=== PATIENT | female | born 1970 | race African-American/Black ===

== ENCOUNTER 2019-09-21 | Outpatient (CLI) | payer OTHER | END 2019-09-21 08:11 | disposition home or self-care (01) | DX: K70.30 Alcoholic cirrhosis of liver without ascites (principal); K21.9 Gastro-esophageal reflux disease without esophagitis; K72.90 Hepatic failure, unspecified without coma ==

== ENCOUNTER 2020-08-16 10:00 | Outpatient (CLI) | payer OTHER | END 2020-08-16 10:01 | disposition home or self-care (01) | LOC: BICULT 10:00 | PROVIDERS: ATTEND Physician Assistant Medical | DX: K70.30 Alcoholic cirrhosis of liver without ascites (principal); K72.90 Hepatic failure, unspecified without coma; R63.4 Abnormal weight loss; R07.81 Pleurodynia; R18.8 Other ascites; R16.1 Splenomegaly, not elsewhere classified | CPT/HCPCS: 76705 ==

== ENCOUNTER 2020-12-02 04:10 | Inpatient (IN) | payer OTHER ==
[2020-12-02] MEDS ORDERED: Potassium Chloride 40 MEQ in Premix Bag 1 BAG IVPB SCH (06:00)
[2020-12-02] MEDS ORDERED: Dextrose 50% Abboject 50 ML SYRINGE SLOW IVP PRN (06:17)
[2020-12-02] MEDS ORDERED: Ondansetron PF 4 MG/2 ML Vial IVP PRN (06:17)
[2020-12-02] MEDS ORDERED: hydrALAZINE 20 MG/ML VIAL SLOW IVP PRN (06:17)
[2020-12-02] MEDS ORDERED: Dextrose 5% in Water 1,000 ML IV PRN (06:17)
[2020-12-02] MEDS ORDERED: Potassium Chloride 40 MEQ in Sodium Chloride 0.9% 250 ML 250 ML IVPB SCH (06:30)
[2020-12-02] MEDS: Sodium Chloride 0.9% 1,000 ML IV SCH ×3 (06:55→21:08)
[2020-12-02] MEDS: Oxazepam 10 MG CAP PO SCH ×3 (07:00→23:47)
[2020-12-02 07:26] LABS: Hemoglobin 8.9 g/dL (12.0-16.0); Mean Corpuscular HGB CONC 31.6 g/dL (32.0-36.0); Mean Corpuscular Volume 91.7 fL (78.0-98.0); Mean Platelet Volume 8.8 fL (7.4-10.4); Platelet Count 64 thou/uL (130-400); RBC Distribution Width 15.3 % (11.5-14.5); Red Blood Cell (RBC) Count 3.07 mill/uL (4.20-5.40); White Blood Cell (WBC) Count 2.8 thou/uL (4.8-10.8)
[2020-12-02 07:34] LABS: Lactic Acid 3.9 mmol/L (0.5-2.2)
[2020-12-02 07:39] LABS: ALT (SGPT) 30 U/L (8-55); AST (SGOT) 154 U/L (5-34); Albumin 2.7 g/dL (3.5-5.0); Alkaline Phosphatase 312 U/L (40-110); Anion Gap 15 mmol/L (10-20); BUN (Urea Nitrogen) 7 mg/dL (9.8-20.1); Calc. Creatinine Clearance 81 mL/min (70-130); Calcium 7.6 mg/dL (7.8-10.44); Carbon Dioxide 23 mmol/L (22-29); Chloride 103 mmol/L (98-107); Globulin 5.2 g/dL (2.4-3.5); Glucose 96 mg/dL (70-105); Magnesium 1.3 mg/dL (1.6-2.6); Phosphorus 3.4 mg/dL (2.3-4.7); Potassium 3.5 mmol/L (3.5-5.1); Protein, Total 7.9 g/dL (6.0-8.3); Sodium 137 mmol/L (136-145)
[2020-12-02 07:47] LABS: INR-International Normal Ratio 1.5; Prothrombin Time 18.1 sec (12.0-14.7)
[2020-12-02 07:48] LABS: PTT 34.2 sec (22.9-36.1)
[2020-12-02] MEDS ORDERED: Magnesium Sulfate 4 GM in Sodium Chloride 0.9% 250 ML 250 ML IV SCH (08:00)
[2020-12-02] MEDS ORDERED: Ferrous Sulfate 325 MG TAB PO SCH (08:00)
[2020-12-02 08:06] LABS: #Lymphocytes 0.5 thou/uL (1.20-3.40); #Monocytes 0.2 thou/uL (0.11-0.59); %Basophils 1.2 % (0.0-1.0); %Eosinophils 1.1 % (0.0-10.0); %Lymphocytes 17.3 % (21.0-51.0); %Monocytes 8.5 % (0.0-10.0); %Neutrophils 71.9 % (42.0-75.0); Band 2 % (5-11); Hypochromia SLIGHT = 6-15 cells (100X) (0-5/hpf); Lymphocytes 14 % (21-51); MDiff Complete? YES; Monocytes 4 % (0-10); Neutrophil 78 % (42-75); Platelet Morphology Comment Appears Decreased; Polychromasia SLIGHT = 2-3 cells (100X) (0-2/hpf); Target Cells SLIGHT = 2-5 cells (100X) (0-1/hpf)
[2020-12-02] MEDS: Ascorbic Acid 500 mg Chewable Tablet PO SCH ×2 (09:00→21:54)
[2020-12-02] MEDS: Ferrous Sulfate 325 MG TAB PO SCH ×2 (09:00→21:55)
[2020-12-02] MEDS ORDERED: levETIRAcetam in NS 500 MG in Premix Bag 1 BAG IVPB SCH (09:00)
[2020-12-02] MEDS: Folic Acid 1 MG TAB PO SCH (09:00)
[2020-12-02] MEDS ORDERED: levETIRAcetam 500 MG TAB PO SCH (09:00)
[2020-12-02] MEDS: Pantoprazole 40 MG VIAL IVP SCH (12:17)
[2020-12-02 14:56] LABS: Bacteria/HPF None Seen HPF (None Seen); Bilirubin Negative (Negative); Blood, Urine Negative (Negative); Clarity Clear (Clear); Glucose, Urine (Dipstick) Normal (Negative); Ketone, Urine Negative (Negative); Leukocyte Negative Leu/uL (Negative); Nitrite Negative (Negative); Protein, Urine (Dipstick) Negative (Neg-Trace); RBC/HPF 0-3 HPF (0-3); Specific Gravity, Urine 1.027 (1.002-1.036); Squamous Epithelial None Seen HPF (0-3); WBC/HPF 0-3 HPF (0-3)
[2020-12-02 14:58] LABS: Urine Culture Reflex No No
[2020-12-02] MEDS ORDERED: Promethazine HCl 12.5 MG in Sodium Chloride 0.9% 50 ML IVPB PRN (16:11)
[2020-12-02] MEDS ORDERED: Ibuprofen 600 MG TAB PO PRN (16:36)
[2020-12-02] MEDS ORDERED: Fentanyl 250 MCG/5 ML VIAL ONE (16:51)
[2020-12-02] MEDS ORDERED: Lidocaine 0.5%/Epinephrine 1:200,000 50 ml Vial ONE (16:54)
[2020-12-02] MEDS ORDERED: Thrombin 5000 UNITS/5 ML VIAL ONE (16:54)
[2020-12-02] MEDS ORDERED: Scopolamine 1.5 mg/72 hour Patch TD SCH (17:00)
[2020-12-02] MEDS ORDERED: Folic Acid 0.4 MG in Syringe 0 ML SC SCH (18:00)
[2020-12-02] MEDS ORDERED: Dexamethasone 20 MG/5 ML VIAL ONE (18:01)
[2020-12-02] MEDS ORDERED: Lidocaine 1% PF 5 ML VIAL ONE (18:01)
[2020-12-02] MEDS ORDERED: PHENYLEPHRINE-NS 100 MCG/ML 10 ML SYRINGE ONE (18:01)
[2020-12-02] MEDS ORDERED: Esmolol 100 MG/10 ML VIAL ONE (18:01)
[2020-12-02] MEDS ORDERED: Rocuronium Bromide 10 MG/ML (10ML VIAL) ONE (18:01)
[2020-12-02] MEDS ORDERED: PROPOFOL 200 MG/20 ML VIAL ONE (18:01)
[2020-12-02 20:27] LABS: Actual Bicarbonate (HCO3a) 22.7 mEq/L (22-28); Base Excess (BEa) 0.3 mEq/L (-2.0 to +3.0); CO2 Tension 28.8 mmHg (35.0-45.0); Calcium, Ionized (arterial) 0.95 mmol/L (1.12-1.30); Carboxyhemoglobin (COHb) 0.6 gm% (0.0-3.0); O2 Tension (PaO2), arterial 108.9 mmHg (80.0-100.0); Potassium - ABG Lab 3.43 mmol/L (3.70-5.30); pH, Arterial 7.52 (7.35-7.45)
[2020-12-02 20:30] LABS: Puncture Site RRA
[2020-12-02] MEDS ORDERED: Calcium Chloride 1 GM/10 ML Abboject SYRINGE IVP SCH ×2 (20:48→21:00)
[2020-12-02] MEDS: levETIRAcetam in NS 500 MG in Premix Bag 1 BAG IVPB SCH (21:09)
[2020-12-02] MEDS ORDERED: Morphine 2 MG/ML VIAL SLOW IVP PRN (21:15)
[2020-12-02] MEDS ORDERED: fentaNYL Citrate/PF 2,000 MCG in Sodium Chloride 0.9% 60 ML IV PRN (21:16)
[2020-12-02] MEDS ORDERED: Fentanyl CADD 100 ML IV SCH (21:45)
[2020-12-02 22:03] LABS: Actual Bicarbonate (HCO3a) 24.8 mEq/L (22-28); Base Excess (BEa) 1.3 mEq/L (-2.0 to +3.0); Carboxyhemoglobin (COHb) 0.4 gm% (0.0-3.0); Hemoglobin (Hb) 9.7 g/dL (12.0-16.0); O2 Tension (PaO2), arterial 156.5 mmHg (80.0-100.0); Potassium - ABG Lab 3.57 mmol/L (3.70-5.30); pH, Arterial 7.47 (7.35-7.45)
[2020-12-02 22:11] LABS: Puncture Site RRA
[2020-12-02] MEDS ORDERED: Fentanyl CADD 100 ML ONE (23:34)
[2020-12-02] MEDS: CEFAZOLIN 2 GM in Premix Bag 1 BAG IVPB SCH (23:47)
[2020-12-03] MEDS ORDERED: Sodium Chloride 0.9% 1,000 ML IV SCH ×5 (00:44→15:30)
[2020-12-03 01:36] LABS: Lactic Acid 2.1 mmol/L (0.5-2.2)
[2020-12-03 01:45] LABS: Troponin I Less than 0.010 ng/mL (< 0.028)
[2020-12-03 01:54] LABS: Anion Gap 12 mmol/L (10-20); BUN (Urea Nitrogen) 8 mg/dL (9.8-20.1); Calc. Creatinine Clearance 74 mL/min (70-130); Calcium 9.4 mg/dL (7.8-10.44); Carbon Dioxide 24 mmol/L (22-29); Chloride 105 mmol/L (98-107); Glucose 188 mg/dL (70-105); Magnesium 1.9 mg/dL (1.6-2.6); Phosphorus 3.4 mg/dL (2.3-4.7); Potassium 3.5 mmol/L (3.5-5.1); Sodium 137 mmol/L (136-145)
[2020-12-03 04:14] LABS: #Lymphocytes 0.2 thou/uL (1.20-3.40); #Monocytes 0.3 thou/uL (0.11-0.59); #Neutrophils 3.5 thou/uL (1.40-6.50); %Eosinophils 0.2 % (0.0-10.0); %Lymphocytes 6.1 % (21.0-51.0); %Monocytes 6.6 % (0.0-10.0); %Neutrophils 87.1 % (42.0-75.0); Hemoglobin 9.1 g/dL (12.0-16.0); Mean Corpuscular HGB CONC 32.9 g/dL (32.0-36.0); Mean Corpuscular Hemoglobin 29.9 pg (27.0-31.0); Mean Corpuscular Volume 90.8 fL (78.0-98.0); Mean Platelet Volume 9.4 fL (7.4-10.4); Platelet Count 71 thou/uL (130-400); Red Blood Cell (RBC) Count 3.05 mill/uL (4.20-5.40)
[2020-12-03 04:32] LABS: Phosphorus 3.5 mg/dL (2.3-4.7)
[2020-12-03 04:33] LABS: Anion Gap 13 mmol/L (10-20); BUN (Urea Nitrogen) 9 mg/dL (9.8-20.1); Calc. Creatinine Clearance 76 mL/min (70-130); Calcium 8.9 mg/dL (7.8-10.44); Carbon Dioxide 23 mmol/L (22-29); Chloride 107 mmol/L (98-107); Glucose 158 mg/dL (70-105); Magnesium 1.9 mg/dL (1.6-2.6); Potassium 3.7 mmol/L (3.5-5.1); Sodium 139 mmol/L (136-145)
[2020-12-03] MEDS: CEFAZOLIN 2 GM in Premix Bag 1 BAG IVPB SCH ×3 (05:47→21:12)
[2020-12-03] MEDS ORDERED: Sodium Chloride 0.9% 500 ML IV SCH (06:15)
[2020-12-03] MEDS: Oxazepam 10 MG CAP PO SCH ×3 (11:23→21:13)
[2020-12-03] MEDS: Folic Acid 1 MG TAB PO SCH (12:04)
[2020-12-03] MEDS: Ascorbic Acid 500 mg Chewable Tablet PO SCH (12:04)
[2020-12-03] MEDS: Ferrous Sulfate 325 MG TAB PO SCH (12:04)
[2020-12-03] MEDS: Pantoprazole 40 MG VIAL IVP SCH (12:05)
[2020-12-03] MEDS ORDERED: Ondansetron ODT 4 MG TAB PO PRN (14:00)
[2020-12-03] MEDS ORDERED: Morphine 2 MG/ML VIAL SLOW IVP PRN (14:18)
[2020-12-03] MEDS ORDERED: Sodium Chloride 0.9% (PF) 10 ML VIAL FS PRN (14:45)
[2020-12-03] MEDS: Thiamine HCl 200 MG/2 ML VIAL SLOW IVP SCH (15:32)
[2020-12-03] MEDS: Sodium Chloride 0.9% 1,000 ML IV SCH (21:11)
[2020-12-03] MEDS: levETIRAcetam in NS 500 MG in Premix Bag 1 BAG IVPB SCH (21:22)
[2020-12-03] MEDS: Ascorbic Acid 2,000 MG in Sodium Chloride 0.9% 50 ML IVPB SCH (21:37)
[2020-12-04 04:25] LABS: #Lymphocytes 0.9 thou/uL (1.20-3.40); #Monocytes 0.7 thou/uL (0.11-0.59); #Neutrophils 3.2 thou/uL (1.40-6.50); %Basophils 0.3 % (0.0-1.0); %Eosinophils 0.3 % (0.0-10.0); %Lymphocytes 18.3 % (21.0-51.0); %Monocytes 13.7 % (0.0-10.0); %Neutrophils 67.4 % (42.0-75.0); Hemoglobin 7.5 g/dL (12.0-16.0); Mean Corpuscular HGB CONC 32.6 g/dL (32.0-36.0); Mean Corpuscular Volume 92.2 fL (78.0-98.0); Mean Platelet Volume 8.8 fL (7.4-10.4); Platelet Count 70 thou/uL (130-400); White Blood Cell (WBC) Count 4.8 thou/uL (4.8-10.8)
[2020-12-04 04:28] LABS: INR-International Normal Ratio 1.6; Prothrombin Time 18.6 sec (12.0-14.7)
[2020-12-04 04:30] LABS: PTT 34.6 sec (22.9-36.1)
[2020-12-04 04:49] LABS: Anion Gap 11 mmol/L (10-20); BUN (Urea Nitrogen) 14 mg/dL (9.8-20.1); Calc. Creatinine Clearance 76 mL/min (70-130); Calcium 7.7 mg/dL (7.8-10.44); Carbon Dioxide 23 mmol/L (22-29); Chloride 109 mmol/L (98-107); Glucose 83 mg/dL (70-105); Magnesium 1.5 mg/dL (1.6-2.6); Phosphorus 3.2 mg/dL (2.3-4.7); Potassium 3.6 mmol/L (3.5-5.1); Sodium 139 mmol/L (136-145)
[2020-12-04] MEDS: Oxazepam 10 MG CAP PO SCH ×3 (06:45→21:31)
[2020-12-04] MEDS: CEFAZOLIN 2 GM in Premix Bag 1 BAG IVPB SCH ×3 (06:45→21:31)
[2020-12-04] MEDS ORDERED: Hydrocortisone Sod Succ/PF 100 mg/2 ml Vial IVP SCH (08:00)
[2020-12-04] MEDS ORDERED: Magnesium Sulfate 4 GM in Sodium Chloride 0.9% 250 ML 250 ML IV SCH (08:00)
[2020-12-04] MEDS ORDERED: Calcium Chloride 1 GM/10 ML Abboject SYRINGE IVP SCH (08:00)
[2020-12-04 08:13] LABS: Hemoglobin 8.3 g/dL (12.0-16.0)
[2020-12-04] MEDS ORDERED: Folic Acid 0.4 MG in Syringe 0 ML SC SCH (09:00)
[2020-12-04] MEDS ORDERED: Pantoprazole 40 MG VIAL IVP SCH ×2 (09:00)
[2020-12-04] MEDS: Sodium Chloride 0.9% 1,000 ML IV SCH (09:33)
[2020-12-04] MEDS: levETIRAcetam in NS 500 MG in Premix Bag 1 BAG IVPB SCH (09:34)
[2020-12-04] MEDS ORDERED: Potassium Phosphate 30 MMOL in Sodium Chloride 0.9% 250 ML 250 ML IVPB SCH (11:00)
[2020-12-04] MEDS: Ascorbic Acid 2,000 MG in Sodium Chloride 0.9% 50 ML IVPB SCH (13:17)
[2020-12-04] MEDS: Hydrocortisone Sod Succ/PF 100 mg/2 ml Vial IVP SCH ×2 (14:47→20:50)
[2020-12-04] MEDS: Thiamine HCl 200 MG/2 ML VIAL SLOW IVP SCH (16:48)
[2020-12-04] MEDS: traMADol HCl 50 MG TAB PO PRN (19:01)
[2020-12-04] MEDS: levETIRAcetam 500 MG TAB PO SCH (21:31)
[2020-12-05] MEDS: Hydrocortisone Sod Succ/PF 100 mg/2 ml Vial IVP SCH ×4 (02:09→20:40)
[2020-12-05 04:54] LABS: #Lymphocytes 0.4 thou/uL (1.20-3.40); #Monocytes 0.6 thou/uL (0.11-0.59); #Neutrophils 4.1 thou/uL (1.40-6.50); %Basophils 0.1 % (0.0-1.0); %Eosinophils 0.1 % (0.0-10.0); %Lymphocytes 8.2 % (21.0-51.0); %Monocytes 11.5 % (0.0-10.0); %Neutrophils 80.2 % (42.0-75.0); Hemoglobin 7.1 g/dL (12.0-16.0); Mean Corpuscular HGB CONC 33.1 g/dL (32.0-36.0); Mean Corpuscular Hemoglobin 30.3 pg (27.0-31.0); Mean Corpuscular Volume 91.5 fL (78.0-98.0); Mean Platelet Volume 8.8 fL (7.4-10.4); Platelet Count 73 thou/uL (130-400); RBC Distribution Width 14.9 % (11.5-14.5); Red Blood Cell (RBC) Count 2.34 mill/uL (4.20-5.40); White Blood Cell (WBC) Count 5.1 thou/uL (4.8-10.8)
[2020-12-05 05:00] LABS: Anion Gap 12 mmol/L (10-20); BUN (Urea Nitrogen) 10 mg/dL (9.8-20.1); Calc. Creatinine Clearance 86 mL/min (70-130); Calcium 8.1 mg/dL (7.8-10.44); Carbon Dioxide 21 mmol/L (22-29); Chloride 107 mmol/L (98-107); Glucose 149 mg/dL (70-105); Magnesium 1.8 mg/dL (1.6-2.6); Phosphorus 2.2 mg/dL (2.3-4.7); Potassium 3.7 mmol/L (3.5-5.1); Sodium 136 mmol/L (136-145)
[2020-12-05] MEDS: CEFAZOLIN 2 GM in Premix Bag 1 BAG IVPB SCH ×3 (05:04→21:56)
[2020-12-05] MEDS: Oxazepam 10 MG CAP PO SCH ×3 (05:05→21:56)
[2020-12-05] MEDS ORDERED: Magnesium Sulfate 3 GM in Sodium Chloride 0.9% 100 ML IV SCH (05:15)
[2020-12-05] MEDS ORDERED: Potassium Phosphate 30 MMOL in Sodium Chloride 0.9% 500 ML IVPB SCH (05:15)
[2020-12-05 05:55] LABS: ALT (SGPT) 14 U/L (8-55); AST (SGOT) 92 U/L (5-34); Albumin 2.5 g/dL (3.5-5.0); Alkaline Phosphatase 253 U/L (40-110); Bilirubin, Direct 1.6 mg/dL (0.1-0.3); Bilirubin, Total 2.3 mg/dL (0.2-1.2); Protein, Total 6.7 g/dL (6.0-8.3)
[2020-12-05] MEDS: traMADol HCl 50 MG TAB PO PRN ×2 (05:56→20:40)
[2020-12-05 06:23] LABS: INR-International Normal Ratio 1.4; Prothrombin Time 17.2 sec (12.0-14.7)
[2020-12-05 06:25] LABS: PTT 32.7 sec (22.9-36.1)
[2020-12-05 06:54] LABS: #Lymphocytes 0.4 thou/uL (1.20-3.40); #Monocytes 0.5 thou/uL (0.11-0.59); #Neutrophils 4.2 thou/uL (1.40-6.50); %Eosinophils 0.1 % (0.0-10.0); %Lymphocytes 7.1 % (21.0-51.0); %Monocytes 9.2 % (0.0-10.0); %Neutrophils 83.7 % (42.0-75.0); Mean Corpuscular HGB CONC 30.1 g/dL (32.0-36.0); Mean Corpuscular Volume 92.9 fL (78.0-98.0); Platelet Count 75 thou/uL (130-400); Red Blood Cell (RBC) Count 2.49 mill/uL (4.20-5.40)
[2020-12-05 07:42] LABS: Hypochromia SLIGHT = 6-15 cells (100X) (0-5/hpf); MDiff Complete? YES; Platelet Morphology Comment Appears Decreased; Polychromasia SLIGHT = 2-3 cells (100X) (0-2/hpf); Target Cells SLIGHT = 2-5 cells (100X) (0-1/hpf)
[2020-12-05] MEDS ORDERED: Ascorbic Acid 500 mg Chewable Tablet PO SCH (08:00)
[2020-12-05] MEDS ORDERED: Ferrous Sulfate 325 MG TAB PO SCH (08:00)
[2020-12-05] MEDS ORDERED: Pantoprazole 40 MG GRANULES PACKET PO SCH (09:00)
[2020-12-05] MEDS: levETIRAcetam 500 MG TAB PO SCH ×2 (09:56→20:41)
[2020-12-05] MEDS: Ferrous Sulfate 325 MG TAB PO SCH ×2 (09:56→20:41)
[2020-12-05] MEDS: Gabapentin 100 MG CAP PO SCH ×3 (09:56→20:41)
[2020-12-05] MEDS: Folic Acid 1 MG TAB PO SCH (09:56)
[2020-12-05] MEDS: Ascorbic Acid 500 mg Chewable Tablet PO SCH ×2 (09:56→20:41)
[2020-12-05] MEDS: Thiamine 100 MG TAB PO SCH (09:56)
[2020-12-05] MEDS: Rifaximin 550 MG TAB PO SCH (20:40)
[2020-12-06] MEDS: Hydrocortisone Sod Succ/PF 100 mg/2 ml Vial IVP SCH ×2 (01:57→09:04)
[2020-12-06 05:35] LABS: Anion Gap 10 mmol/L (10-20); BUN (Urea Nitrogen) 10 mg/dL (9.8-20.1); Calc. Creatinine Clearance 91 mL/min (70-130); Calcium 7.7 mg/dL (7.8-10.44); Carbon Dioxide 22 mmol/L (22-29); Chloride 107 mmol/L (98-107); Glucose 142 mg/dL (70-105); Magnesium 1.9 mg/dL (1.6-2.6); Phosphorus 2.6 mg/dL (2.3-4.7); Potassium 3.9 mmol/L (3.5-5.1); Sodium 135 mmol/L (136-145)
[2020-12-06 05:37] LABS: #Lymphocytes 0.5 thou/uL (1.20-3.40); #Monocytes 0.8 thou/uL (0.11-0.59); #Neutrophils 5.6 thou/uL (1.40-6.50); %Eosinophils 0.2 % (0.0-10.0); %Lymphocytes 7.8 % (21.0-51.0); %Monocytes 10.9 % (0.0-10.0); %Neutrophils 81.1 % (42.0-75.0); Mean Corpuscular HGB CONC 33.4 g/dL (32.0-36.0); Mean Corpuscular Hemoglobin 30.6 pg (27.0-31.0); Mean Corpuscular Volume 91.9 fL (78.0-98.0); Mean Platelet Volume 8.7 fL (7.4-10.4); Platelet Count 83 thou/uL (130-400); RBC Distribution Width 14.7 % (11.5-14.5); Red Blood Cell (RBC) Count 2.94 mill/uL (4.20-5.40); White Blood Cell (WBC) Count 6.9 thou/uL (4.8-10.8)
[2020-12-06] MEDS: CEFAZOLIN 2 GM in Premix Bag 1 BAG IVPB SCH ×2 (05:50→22:05)
[2020-12-06] MEDS: Oxazepam 10 MG CAP PO SCH ×2 (05:50→16:58)
[2020-12-06] MEDS: Rifaximin 550 MG TAB PO SCH (09:05)
[2020-12-06] MEDS: Spironolactone 100 MG TAB PO SCH (09:05)
[2020-12-06] MEDS: Gabapentin 100 MG CAP PO SCH ×2 (09:05→16:58)
[2020-12-06] MEDS: Ferrous Sulfate 325 MG TAB PO SCH (09:06)
[2020-12-06] MEDS: levETIRAcetam 500 MG TAB PO SCH (09:06)
[2020-12-06] MEDS: Folic Acid 1 MG TAB PO SCH (09:06)
[2020-12-06] MEDS: traMADol HCl 50 MG TAB PO PRN (09:06)
[2020-12-06] MEDS: Furosemide 40 MG TAB PO SCH (09:06)
[2020-12-06] MEDS: Thiamine 100 MG TAB PO SCH (09:06)
[2020-12-06] MEDS: Ascorbic Acid 500 mg Chewable Tablet PO SCH (09:06)
[2020-12-06] MEDS ORDERED: Iopamidol 370 76% 50 ML VIAL FS ONE (09:21)
[2020-12-06] MEDS ORDERED: Sodium Bicarbonate 2.5 MEQ/5 ML VIAL ONE (09:39)
[2020-12-06] MEDS ORDERED: Lidocaine 1% PF 5 ML VIAL ONE (09:39)
[2020-12-06] MEDS: Ondansetron PF 4 MG/2 ML Vial IVP PRN (11:06)
[2020-12-06] MEDS: hydrALAZINE 20 MG/ML VIAL SLOW IVP PRN (11:19)
[2020-12-06] MEDS ORDERED: Fentanyl 100 MCG/2 ML VIAL ONE ×2 (13:10→16:42)
[2020-12-06] MEDS ORDERED: Bacitracin Zinc Ointment 30 gm TUBE ONE (13:15)
[2020-12-06] MEDS ORDERED: Lidocaine 0.5%/Epinephrine 1:200,000 50 ml Vial ONE (13:15)
[2020-12-06] MEDS ORDERED: Thrombin 5000 UNITS/5 ML VIAL ONE (13:15)
[2020-12-06] MEDS ORDERED: SUGAMMADEX SODIUM 200 MG/2 ML VIAL ONE (13:16)
[2020-12-06 13:52] LABS: RBC Count-Automated (BF) 1596 /cu.mm; WBC/Nucleated-Auto (BF) 274 uL
[2020-12-06 14:07] LABS: BF Color Yellow; Body Fluid Source Ascites Body Fluid; Clarity Hazy (Clear); Tube # EDTA
[2020-12-06 14:13] LABS: BF Segmented Neutrophils 16 %; Cell Count Non Hematic 42 %; Lymphocytes 42 %
[2020-12-06] MEDS ORDERED: PROPOFOL 200 MG/20 ML VIAL ONE (14:14)
[2020-12-06] MEDS ORDERED: Lidocaine 2% PF 5 ML VIAL ONE (14:14)
[2020-12-06] MEDS ORDERED: Calcium Chloride 1 GM/10 ML Abboject SYRINGE ONE (14:14)
[2020-12-06] MEDS ORDERED: Rocuronium Bromide 10 MG/ML (10ML VIAL) ONE (14:14)
[2020-12-06] MEDS ORDERED: PHENYLEPHRINE-NS 100 MCG/ML 10 ML SYRINGE ONE (14:14)
[2020-12-06] MEDS ORDERED: Promethazine HCl 25 MG/ML VIAL IVPB PRN (14:43)
[2020-12-06] MEDS ORDERED: Ondansetron HCl/PF 4 MG/2 ML Vial IVP PRN (14:43)
[2020-12-06] MEDS ORDERED: Promethazine HCl 25 MG/ML VIAL IM PRN (14:43)
[2020-12-06 14:44] VITALS: BMI 24.2
[2020-12-06 16:40] LABS: Actual Bicarbonate (HCO3a) 24.4 mEq/L (22-28); CO2 Tension 29.9 mmHg (35.0-45.0); Calcium, Ionized (arterial) 1.11 mmol/L (1.12-1.30); Carboxyhemoglobin (COHb) 0.5 gm% (0.0-3.0); Hemoglobin (Hb) 9.4 g/dL (12.0-16.0); Potassium - ABG Lab 3.55 mmol/L (3.70-5.30); pH, Arterial 7.53 (7.35-7.45)
[2020-12-06 16:49] LABS: ALV-art Gradient 190.925 mmHg (0-20); O2 Tension (PaO2), arterial 56.9 mmHg (80.0-100.0); Puncture Site LRA
[2020-12-06] MEDS ORDERED: Ventilator Sedation Protocol 1 EACH FS ONE (18:28)
[2020-12-06] MEDS ORDERED: Calcium Chloride 1 GM/10 ML Abboject SYRINGE IVP SCH (18:45)
[2020-12-06] MEDS ORDERED: Propofol 1,000 MG/100 ML VIAL IV PRN (18:45)
[2020-12-06] MEDS ORDERED: DISCONTINUE PREVIOUS NARCOTIC PAIN MEDICATIONS AND BENZODIAZEPINES FS SCH (18:45)
[2020-12-06] MEDS ORDERED: Fentanyl BOLUS 250 ML IVPB PRN (18:45)
[2020-12-06] MEDS ORDERED: Fentanyl CADD 100 ML IV SCH (18:45)
[2020-12-06] MEDS ORDERED: Propofol BOLUS 1,000 MG/100 ML VIAL IV PRN (18:45)
[2020-12-06] MEDS ORDERED: Morphine 2 MG/ML VIAL SLOW IVP PRN (18:45)
[2020-12-06] MEDS ORDERED: Lorazepam 2 MG/ML VIAL SLOW IVP PRN (18:45)
[2020-12-06] MEDS: Sodium Chloride 0.9% 1,000 ML IV SCH (19:00)
[2020-12-06 19:24] LABS: INR-International Normal Ratio 1.5; Prothrombin Time 17.9 sec (12.0-14.7)
[2020-12-06 19:26] LABS: PTT 26.7 sec (22.9-36.1)
[2020-12-06 20:02] LABS: Hemoglobin 10.1 g/dL (12.0-16.0); Mean Corpuscular Hemoglobin 31.2 pg (27.0-31.0); Mean Corpuscular Volume 91.6 fL (78.0-98.0); Mean Platelet Volume 8.4 fL (7.4-10.4); Platelet Count 134 thou/uL (130-400); RBC Distribution Width 15.4 % (11.5-14.5); Red Blood Cell (RBC) Count 3.25 mill/uL (4.20-5.40); White Blood Cell (WBC) Count 11.5 thou/uL (4.8-10.8)
[2020-12-06 20:23] LABS: Band 9 % (5-11); Lymphocytes 12 % (21-51); MDiff Complete? YES; Monocytes 9 % (0-10); Neutrophil 70 % (42-75); Platelet Morphology Comment Appears Adequate; Polychromasia MODERATE = 3-4 cells (100X) (0-2/hpf); Target Cells SLIGHT = 2-5 cells (100X) (0-1/hpf); Tear Drops SLIGHT = 2-5 cells (100X) (0-1/hpf)
[2020-12-07] MEDS: Ascorbic Acid 500 mg Chewable Tablet PO SCH ×3 (01:47→19:36)
[2020-12-07] MEDS: Ferrous Sulfate 325 MG TAB PO SCH ×3 (01:48→19:37)
[2020-12-07] MEDS: Rifaximin 550 MG TAB PO SCH ×3 (01:48→19:37)
[2020-12-07] MEDS: levETIRAcetam 500 MG TAB PO SCH ×3 (01:48→19:37)
[2020-12-07] MEDS: CEFAZOLIN 2 GM in Premix Bag 1 BAG IVPB SCH ×5 (01:49→23:21)
[2020-12-07 03:43] LABS: #Lymphocytes 1.2 thou/uL (1.20-3.40); #Monocytes 1.1 thou/uL (0.11-0.59); #Neutrophils 6.5 thou/uL (1.40-6.50); %Basophils 0.2 % (0.0-1.0); %Eosinophils 0.1 % (0.0-10.0); %Lymphocytes 13.5 % (21.0-51.0); %Monocytes 12.5 % (0.0-10.0); %Neutrophils 73.8 % (42.0-75.0); Hemoglobin 8.6 g/dL (12.0-16.0); Mean Corpuscular HGB CONC 32.9 g/dL (32.0-36.0); Mean Corpuscular Hemoglobin 30.2 pg (27.0-31.0); Mean Corpuscular Volume 91.8 fL (78.0-98.0); Mean Platelet Volume 8.6 fL (7.4-10.4); Platelet Count 127 thou/uL (130-400); RBC Distribution Width 15.7 % (11.5-14.5); Red Blood Cell (RBC) Count 2.85 mill/uL (4.20-5.40); White Blood Cell (WBC) Count 8.8 thou/uL (4.8-10.8)
[2020-12-07 04:19] LABS: Anion Gap 12 mmol/L (10-20); BUN (Urea Nitrogen) 12 mg/dL (9.8-20.1); Calc. Creatinine Clearance 91 mL/min (70-130); Carbon Dioxide 22 mmol/L (22-29); Chloride 107 mmol/L (98-107); Glucose 102 mg/dL (70-105); Magnesium 1.6 mg/dL (1.6-2.6); Phosphorus 3.4 mg/dL (2.3-4.7); Potassium 3.6 mmol/L (3.5-5.1); Sodium 137 mmol/L (136-145)
[2020-12-07 04:27] LABS: INR-International Normal Ratio 1.4; Prothrombin Time 17.6 sec (12.0-14.7)
[2020-12-07 04:28] LABS: PTT 28.4 sec (22.9-36.1)
[2020-12-07] MEDS ORDERED: Magnesium Sulfate 3 GM in Sodium Chloride 0.9% 100 ML IVPB SCH (07:20)
[2020-12-07] MEDS: Furosemide 40 MG TAB PO SCH (07:42)
[2020-12-07] MEDS ORDERED: Potassium Phosphate 30 MMOL, Magnesium Sulfate 3 GM in Sodium Chloride 0.9% 250 ML IVPB SCH (08:00)
[2020-12-07 08:10] LABS: Actual Bicarbonate (HCO3a) 24.7 mEq/L (22-28); Base Excess (BEa) 2.4 mEq/L (-2.0 to +3.0); CO2 Tension 29.5 mmHg (35.0-45.0); Calcium, Ionized (arterial) 1.04 mmol/L (1.12-1.30); Carboxyhemoglobin (COHb) 0.5 gm% (0.0-3.0); Hemoglobin (Hb) 8.7 g/dL (12.0-16.0); O2 Tension (PaO2), arterial 197.8 mmHg (80.0-100.0); Potassium - ABG Lab 3.77 mmol/L (3.70-5.30); pH, Arterial 7.54 (7.35-7.45)
[2020-12-07 08:25] LABS: ALV-art Gradient 50.525 mmHg (0-20); Puncture Site LB
[2020-12-07] MEDS: Gabapentin 100 MG CAP PO SCH (08:42)
[2020-12-07] MEDS: levETIRAcetam in NS 500 MG in Premix Bag 1 BAG IVPB SCH (08:43)
[2020-12-07] MEDS: Folic Acid 1 MG TAB PO SCH (08:52)
[2020-12-07] MEDS: Sodium Chloride 0.9% 1,000 ML IV SCH ×2 (08:52→19:40)
[2020-12-07] MEDS: Thiamine 100 MG TAB PO SCH (08:52)
[2020-12-07] MEDS ORDERED: Pantoprazole 40 MG VIAL IVP SCH (10:15)
[2020-12-07] MEDS: Spironolactone 100 MG TAB PO SCH (10:33)
[2020-12-07] MEDS: Albumin 25% 25 GM/100 ML BOT IVPB SCH (17:49)
[2020-12-08] MEDS: Albumin 25% 25 GM/100 ML BOT IVPB SCH ×4 (01:04→21:27)
[2020-12-08] MEDS: Morphine 4 MG/ML VIAL SLOW IVP PRN ×2 (02:54→23:22)
[2020-12-08 04:02] LABS: ALT (SGPT) 10 U/L (8-55); AST (SGOT) 56 U/L (5-34); Albumin 2.3 g/dL (3.5-5.0); Alkaline Phosphatase 151 U/L (40-110); Anion Gap 9 mmol/L (10-20); BUN (Urea Nitrogen) 12 mg/dL (9.8-20.1); Bilirubin, Direct 1.7 mg/dL (0.1-0.3); Bilirubin, Total 2.5 mg/dL (0.2-1.2); Calc. Creatinine Clearance 92 mL/min (70-130); Calcium 7.5 mg/dL (7.8-10.44); Carbon Dioxide 24 mmol/L (22-29); Chloride 108 mmol/L (98-107); Glucose 97 mg/dL (70-105); Magnesium 1.9 mg/dL (1.6-2.6); Phosphorus 3.6 mg/dL (2.3-4.7); Potassium 3.7 mmol/L (3.5-5.1); Protein, Total 5.9 g/dL (6.0-8.3); Sodium 137 mmol/L (136-145)
[2020-12-08] MEDS: CEFAZOLIN 2 GM in Premix Bag 1 BAG IVPB SCH ×3 (08:23→23:21)
[2020-12-08] MEDS: Pantoprazole 40 MG VIAL IVP SCH (08:23)
[2020-12-08] MEDS: Rifaximin 550 MG TAB PO SCH ×2 (08:43→21:28)
[2020-12-08] MEDS: Thiamine 100 MG TAB PO SCH (08:44)
[2020-12-08] MEDS: Ferrous Sulfate 325 MG TAB PO SCH ×2 (08:44→21:28)
[2020-12-08] MEDS: Ascorbic Acid 500 mg Chewable Tablet PO SCH ×2 (08:44→21:28)
[2020-12-08] MEDS: levETIRAcetam 500 MG TAB PO SCH (08:44)
[2020-12-08] MEDS: Folic Acid 1 MG TAB PO SCH (08:44)
[2020-12-08] MEDS: Furosemide 40 MG TAB PO SCH (08:44)
[2020-12-08 08:46] LABS: #Lymphocytes 0.7 thou/uL (1.20-3.40); #Monocytes 0.7 thou/uL (0.11-0.59); #Neutrophils 4.6 thou/uL (1.40-6.50); %Basophils 0.7 % (0.0-1.0); %Eosinophils 0.7 % (0.0-10.0); %Lymphocytes 12.1 % (21.0-51.0); %Neutrophils 75.5 % (42.0-75.0); Hemoglobin 8.3 g/dL (12.0-16.0); Mean Corpuscular HGB CONC 31.9 g/dL (32.0-36.0); Mean Corpuscular Hemoglobin 29.7 pg (27.0-31.0); Mean Corpuscular Volume 92.9 fL (78.0-98.0); Mean Platelet Volume 8.8 fL (7.4-10.4); Platelet Count 90 thou/uL (130-400); RBC Distribution Width 15.3 % (11.5-14.5); Red Blood Cell (RBC) Count 2.81 mill/uL (4.20-5.40); White Blood Cell (WBC) Count 6.1 thou/uL (4.8-10.8)
[2020-12-08] MEDS ORDERED: Potassium Phosphate 30 MMOL in Sodium Chloride 0.9% 250 ML 250 ML IVPB SCH (09:00)
[2020-12-08] MEDS: Spironolactone 100 MG TAB PO SCH (09:12)
[2020-12-08] MEDS ORDERED: HUM PROTHROMBIN CPLX(PCC)4FACT 1,000 UNIT, Human Prothrombin Complx(PCC) 500 UNIT in Ad... IV SCH (12:30)
[2020-12-08] MEDS ORDERED: Lorazepam 2 MG/ML VIAL SLOW IVP PRN (13:04)
[2020-12-08] MEDS ORDERED: Lorazepam 2 MG/ML VIAL ONE (13:10)
[2020-12-08] MEDS ORDERED: Lorazepam 2 MG/ML VIAL SLOW IVP SCH (13:30)
[2020-12-08] MEDS ORDERED: levETIRAcetam in NS 1,000 MG in Premix Bag 1 BAG IVPB SCH (13:30)
[2020-12-08] MEDS ORDERED: Albumin 25% 25 GM/100 ML BOT IVPB SCH (21:00)
[2020-12-08] MEDS: levETIRAcetam in NS 1,500 MG in Premix Bag 1 BAG IVPB SCH (21:27)
[2020-12-09] MEDS: Sodium Chloride 0.9% 1,000 ML IV SCH (07:11)
[2020-12-09] MEDS: CEFAZOLIN 2 GM in Premix Bag 1 BAG IVPB SCH ×3 (07:37→23:45)
[2020-12-09] MEDS: Spironolactone 100 MG TAB PO SCH (07:37)
[2020-12-09] MEDS: Furosemide 40 MG TAB PO SCH (07:37)
[2020-12-09] MEDS: levETIRAcetam in NS 1,500 MG in Premix Bag 1 BAG IVPB SCH ×2 (09:03→22:29)
[2020-12-09] MEDS: Ascorbic Acid 500 mg Chewable Tablet PO SCH ×2 (09:04→22:32)
[2020-12-09] MEDS: Saccharomyces boulardii 250 MG CAP PO SCH ×2 (09:04→22:34)
[2020-12-09] MEDS: Thiamine 100 MG TAB PO SCH (09:04)
[2020-12-09] MEDS: Ferrous Sulfate 325 MG TAB PO SCH ×2 (09:04→22:33)
[2020-12-09] MEDS: Folic Acid 1 MG TAB PO SCH (09:04)
[2020-12-09] MEDS: Rifaximin 550 MG TAB PO SCH ×2 (09:04→22:33)
[2020-12-09] MEDS: Pantoprazole 40 MG VIAL IVP SCH (09:05)
[2020-12-09] MEDS: Morphine 4 MG/ML VIAL SLOW IVP PRN (22:34)
[2020-12-10 04:20] LABS: #Eosinphils 0.1 thou/uL (0.0-0.7); #Lymphocytes 1.1 thou/uL (1.20-3.40); #Monocytes 0.6 thou/uL (0.11-0.59); #Neutrophils 4.5 thou/uL (1.40-6.50); %Basophils 0.3 % (0.0-1.0); %Eosinophils 1.2 % (0.0-10.0); %Monocytes 9.9 % (0.0-10.0); %Neutrophils 71.4 % (42.0-75.0); Hemoglobin 7.9 g/dL (12.0-16.0); Mean Corpuscular HGB CONC 33.1 g/dL (32.0-36.0); Mean Corpuscular Hemoglobin 30.6 pg (27.0-31.0); Mean Corpuscular Volume 92.6 fL (78.0-98.0); Platelet Count 98 thou/uL (130-400); RBC Distribution Width 15.1 % (11.5-14.5); Red Blood Cell (RBC) Count 2.57 mill/uL (4.20-5.40); White Blood Cell (WBC) Count 6.3 thou/uL (4.8-10.8)
[2020-12-10 04:50] LABS: ALT (SGPT) 10 U/L (8-55); AST (SGOT) 57 U/L (5-34); Albumin 2.7 g/dL (3.5-5.0); Alkaline Phosphatase 153 U/L (40-110); Anion Gap 10 mmol/L (10-20); BUN (Urea Nitrogen) 9 mg/dL (9.8-20.1); Bilirubin, Total 2.8 mg/dL (0.2-1.2); Calc. Creatinine Clearance 90 mL/min (70-130); Calcium 8.1 mg/dL (7.8-10.44); Carbon Dioxide 25 mmol/L (22-29); Chloride 104 mmol/L (98-107); Globulin 3.4 g/dL (2.4-3.5); Glucose 91 mg/dL (70-105); Potassium 3.9 mmol/L (3.5-5.1); Protein, Total 6.1 g/dL (6.0-8.3); Sodium 135 mmol/L (136-145)
[2020-12-10] MEDS: Saccharomyces boulardii 250 MG CAP PO SCH ×2 (08:19→21:26)
[2020-12-10] MEDS: Ascorbic Acid 500 mg Chewable Tablet PO SCH ×2 (08:19→21:26)
[2020-12-10] MEDS: levETIRAcetam in NS 1,500 MG in Premix Bag 1 BAG IVPB SCH ×2 (08:19→21:26)
[2020-12-10] MEDS: Folic Acid 1 MG TAB PO SCH (08:19)
[2020-12-10] MEDS: Ferrous Sulfate 325 MG TAB PO SCH ×2 (08:19→21:25)
[2020-12-10] MEDS: Spironolactone 100 MG TAB PO SCH (08:19)
[2020-12-10] MEDS: Thiamine 100 MG TAB PO SCH (08:19)
[2020-12-10] MEDS: Pantoprazole 40 MG VIAL IVP SCH (08:20)
[2020-12-10] MEDS: CEFAZOLIN 2 GM in Premix Bag 1 BAG IVPB SCH ×2 (08:20→15:17)
[2020-12-10] MEDS: Furosemide 40 MG TAB PO SCH (08:20)
[2020-12-10] MEDS: Rifaximin 550 MG TAB PO SCH ×2 (08:20→21:26)
[2020-12-10] MEDS: Morphine 4 MG/ML VIAL SLOW IVP PRN ×2 (17:44→23:11)
[2020-12-10] MEDS ORDERED: traMADol HCl 50 MG TAB PO PRN (18:49)
[2020-12-10] MEDS: Acetaminophen 500 MG TAB PO SCH (21:25)
[2020-12-10] MEDS: traMADol HCl 50 MG TAB PO PRN (21:25)
[2020-12-11] MEDS: CEFAZOLIN 2 GM in Premix Bag 1 BAG IVPB SCH ×4 (02:24→23:53)
[2020-12-11] MEDS: Acetaminophen 500 MG TAB PO SCH ×4 (02:25→18:20)
[2020-12-11] MEDS: Pantoprazole 40 MG VIAL IVP SCH (08:20)
[2020-12-11] MEDS: Folic Acid 1 MG TAB PO SCH (08:31)
[2020-12-11] MEDS: traMADol HCl 50 MG TAB PO PRN ×3 (08:31→22:05)
[2020-12-11] MEDS: Saccharomyces boulardii 250 MG CAP PO SCH ×2 (08:32→22:05)
[2020-12-11] MEDS: Spironolactone 100 MG TAB PO SCH (08:33)
[2020-12-11] MEDS: Ascorbic Acid 500 mg Chewable Tablet PO SCH ×2 (08:33→22:05)
[2020-12-11] MEDS: Furosemide 40 MG TAB PO SCH (08:33)
[2020-12-11] MEDS: Ferrous Sulfate 325 MG TAB PO SCH ×2 (08:33→22:05)
[2020-12-11] MEDS: Rifaximin 550 MG TAB PO SCH ×2 (08:34→22:05)
[2020-12-11] MEDS: Thiamine 100 MG TAB PO SCH (08:34)
[2020-12-11] MEDS: levETIRAcetam in NS 1,500 MG in Premix Bag 1 BAG IVPB SCH ×2 (09:18→21:20)
[2020-12-11 17:26] LABS: ALT (SGPT) 9 U/L (8-55); AST (SGOT) 58 U/L (5-34); Albumin 3.2 g/dL (3.5-5.0); Alkaline Phosphatase 188 U/L (40-110); Anion Gap 13 mmol/L (10-20); BUN (Urea Nitrogen) 7 mg/dL (9.8-20.1); Bilirubin, Total 2.7 mg/dL (0.2-1.2); Calc. Creatinine Clearance 87 mL/min (70-130); Calcium 8.4 mg/dL (7.8-10.44); Carbon Dioxide 23 mmol/L (22-29); Chloride 102 mmol/L (98-107); Globulin 3.7 g/dL (2.4-3.5); Glucose 101 mg/dL (70-105); Magnesium 1.4 mg/dL (1.6-2.6); Potassium 4.3 mmol/L (3.5-5.1); Protein, Total 6.9 g/dL (6.0-8.3); Sodium 134 mmol/L (136-145)
[2020-12-12] MEDS: Acetaminophen 500 MG TAB PO SCH ×4 (00:04→21:49)
[2020-12-12 05:08] LABS: #Eosinphils 0.1 thou/uL (0.0-0.7); #Lymphocytes 0.9 thou/uL (1.20-3.40); #Monocytes 0.6 thou/uL (0.11-0.59); #Neutrophils 5.7 thou/uL (1.40-6.50); %Basophils 0.3 % (0.0-1.0); %Eosinophils 1.6 % (0.0-10.0); %Lymphocytes 12.7 % (21.0-51.0); %Monocytes 8.7 % (0.0-10.0); %Neutrophils 76.7 % (42.0-75.0); Hemoglobin 7.7 g/dL (12.0-16.0); Mean Corpuscular HGB CONC 31.1 g/dL (32.0-36.0); Mean Corpuscular Volume 93.2 fL (78.0-98.0); Mean Platelet Volume 9.1 fL (7.4-10.4); Platelet Count 88 thou/uL (130-400); RBC Distribution Width 15.1 % (11.5-14.5); Red Blood Cell (RBC) Count 2.66 mill/uL (4.20-5.40); White Blood Cell (WBC) Count 7.4 thou/uL (4.8-10.8)
[2020-12-12 05:17] LABS: Phosphorus 2.3 mg/dL (2.3-4.7)
[2020-12-12] MEDS: Furosemide 40 MG TAB PO SCH (06:27)
[2020-12-12] MEDS ORDERED: Magnesium Sulfate 3 GM in Sodium Chloride 0.9% 250 ML 250 ML IVPB SCH (07:30)
[2020-12-12] MEDS: Thiamine 100 MG TAB PO SCH (10:54)
[2020-12-12] MEDS: Folic Acid 1 MG TAB PO SCH (10:54)
[2020-12-12] MEDS: Ferrous Sulfate 325 MG TAB PO SCH ×2 (10:55→21:49)
[2020-12-12] MEDS: Saccharomyces boulardii 250 MG CAP PO SCH ×2 (10:55→21:48)
[2020-12-12] MEDS: levETIRAcetam in NS 1,500 MG in Premix Bag 1 BAG IVPB SCH ×2 (10:55→21:50)
[2020-12-12] MEDS: Rifaximin 550 MG TAB PO SCH ×2 (10:55→21:49)
[2020-12-12] MEDS: Ascorbic Acid 500 mg Chewable Tablet PO SCH ×2 (10:55→21:48)
[2020-12-12] MEDS: Pantoprazole 40 MG VIAL IVP SCH (10:55)
[2020-12-12] MEDS: Spironolactone 100 MG TAB PO SCH (10:55)
[2020-12-12] MEDS: CEFAZOLIN 2 GM in Premix Bag 1 BAG IVPB SCH ×2 (11:05→16:45)
[2020-12-13] MEDS: CEFAZOLIN 2 GM in Premix Bag 1 BAG IVPB SCH ×4 (00:34→23:07)
[2020-12-13] MEDS: Acetaminophen 500 MG TAB PO SCH ×4 (00:39→18:57)
[2020-12-13] MEDS: Spironolactone 100 MG TAB PO SCH (10:00)
[2020-12-13] MEDS: Ferrous Sulfate 325 MG TAB PO SCH ×2 (10:01→20:17)
[2020-12-13] MEDS: Furosemide 40 MG TAB PO SCH (10:01)
[2020-12-13] MEDS: Ascorbic Acid 500 mg Chewable Tablet PO SCH ×2 (10:01→20:18)
[2020-12-13] MEDS: Folic Acid 1 MG TAB PO SCH (10:02)
[2020-12-13] MEDS: Rifaximin 550 MG TAB PO SCH ×2 (10:03→20:18)
[2020-12-13] MEDS: Saccharomyces boulardii 250 MG CAP PO SCH ×2 (10:03→20:17)
[2020-12-13] MEDS: levETIRAcetam in NS 1,500 MG in Premix Bag 1 BAG IVPB SCH ×2 (10:03→20:17)
[2020-12-13] MEDS: Thiamine 100 MG TAB PO SCH (10:04)
[2020-12-13 10:06] LABS: Anion Gap 16 mmol/L (10-20); BUN (Urea Nitrogen) 6 mg/dL (9.8-20.1); Calc. Creatinine Clearance 86 mL/min (70-130); Calcium 9.4 mg/dL (7.8-10.44); Carbon Dioxide 21 mmol/L (22-29); Chloride 99 mmol/L (98-107); Glucose 95 mg/dL (70-105); Magnesium 1.6 mg/dL (1.6-2.6); Phosphorus 2.5 mg/dL (2.3-4.7); Sodium 132 mmol/L (136-145)
[2020-12-13] MEDS: Pantoprazole 40 MG VIAL IVP SCH (10:44)
[2020-12-13] MEDS ORDERED: PHOS-NAK 1 PKT PACK PO SCH (13:00)
[2020-12-13] MEDS ORDERED: Magnesium 2 GM/50 ML 2 GM in Premix Bag 1 BAG IVPB SCH (13:00)
[2020-12-13] MEDS: hydrALAZINE 20 MG/ML VIAL SLOW IVP PRN (21:32)
[2020-12-14] MEDS: Acetaminophen 500 MG TAB PO SCH ×4 (00:11→18:26)
[2020-12-14 05:10] LABS: #Basophils 0.1 thou/uL (0.0-0.2); #Eosinphils 0.1 thou/uL (0.0-0.7); #Lymphocytes 1.1 thou/uL (1.20-3.40); %Basophils 0.6 % (0.0-1.0); %Eosinophils 0.5 % (0.0-10.0); %Lymphocytes 10.4 % (21.0-51.0); %Monocytes 9.7 % (0.0-10.0); %Neutrophils 78.7 % (42.0-75.0); Hemoglobin 8.7 g/dL (12.0-16.0); Mean Corpuscular Hemoglobin 29.7 pg (27.0-31.0); Mean Corpuscular Volume 92.9 fL (78.0-98.0); Mean Platelet Volume 8.6 fL (7.4-10.4); Platelet Count 124 thou/uL (130-400); RBC Distribution Width 15.2 % (11.5-14.5); Red Blood Cell (RBC) Count 2.94 mill/uL (4.20-5.40); White Blood Cell (WBC) Count 10.2 thou/uL (4.8-10.8)
[2020-12-14 05:34] LABS: Anion Gap 14 mmol/L (10-20); BUN (Urea Nitrogen) 8 mg/dL (9.8-20.1); Calc. Creatinine Clearance 90 mL/min (70-130); Calcium 9.7 mg/dL (7.8-10.44); Carbon Dioxide 25 mmol/L (22-29); Chloride 98 mmol/L (98-107); Glucose 96 mg/dL (70-105); Magnesium 1.5 mg/dL (1.6-2.6); Sodium 133 mmol/L (136-145)
[2020-12-14] MEDS: Ondansetron PF 4 MG/2 ML Vial IVP PRN (05:44)
[2020-12-14] MEDS: CEFAZOLIN 2 GM in Premix Bag 1 BAG IVPB SCH ×3 (07:15→23:24)
[2020-12-14] MEDS ORDERED: Magnesium 2 GM/50 ML 4 GM in Premix Bag 1 BAG IVPB SCH (07:30)
[2020-12-14] MEDS: Furosemide 40 MG TAB PO SCH (07:44)
[2020-12-14] MEDS: levETIRAcetam in NS 1,500 MG in Premix Bag 1 BAG IVPB SCH ×2 (07:45→21:10)
[2020-12-14] MEDS: Ascorbic Acid 500 mg Chewable Tablet PO SCH ×2 (07:45→21:12)
[2020-12-14] MEDS: Folic Acid 1 MG TAB PO SCH (07:45)
[2020-12-14] MEDS: Ferrous Sulfate 325 MG TAB PO SCH ×2 (07:45→21:12)
[2020-12-14] MEDS: Saccharomyces boulardii 250 MG CAP PO SCH ×2 (07:46→21:12)
[2020-12-14] MEDS: Rifaximin 550 MG TAB PO SCH ×2 (07:46→21:12)
[2020-12-14] MEDS: Thiamine 100 MG TAB PO SCH (07:47)
[2020-12-14] MEDS: Spironolactone 100 MG TAB PO SCH (08:04)
[2020-12-14] MEDS ORDERED: Magnesium Sulfate 4 GM in Sodium Chloride 0.9% 250 ML 250 ML IVPB SCH (09:00)
[2020-12-14] MEDS: Morphine 4 MG/ML VIAL SLOW IVP PRN (21:11)
[2020-12-15] MEDS: Acetaminophen 500 MG TAB PO SCH ×3 (01:39→12:30)
[2020-12-15 06:54] LABS: Anion Gap 16 mmol/L (10-20); BUN (Urea Nitrogen) 9 mg/dL (9.8-20.1); Calc. Creatinine Clearance 85 mL/min (70-130); Calcium 9.5 mg/dL (7.8-10.44); Carbon Dioxide 20 mmol/L (22-29); Chloride 99 mmol/L (98-107); Glucose 69 mg/dL (70-105); Magnesium 1.7 mg/dL (1.6-2.6); Phosphorus 3.6 mg/dL (2.3-4.7); Potassium 4.5 mmol/L (3.5-5.1); Sodium 130 mmol/L (136-145)
[2020-12-15] MEDS ORDERED: Magnesium 2 GM/50 ML 2 GM in Premix Bag 1 BAG IVPB SCH (07:15)
[2020-12-15] MEDS ORDERED: PHOS-NAK 1 PKT PACK PO SCH (07:15)
[2020-12-15] MEDS: levETIRAcetam in NS 1,500 MG in Premix Bag 1 BAG IVPB SCH (09:26)
[2020-12-15] MEDS: Ferrous Sulfate 325 MG TAB PO SCH (09:28)
[2020-12-15] MEDS: Furosemide 40 MG TAB PO SCH (09:28)
[2020-12-15] MEDS: Folic Acid 1 MG TAB PO SCH (09:28)
[2020-12-15] MEDS: Thiamine 100 MG TAB PO SCH (09:28)
[2020-12-15] MEDS: Spironolactone 100 MG TAB PO SCH (09:28)
[2020-12-15] MEDS: Ascorbic Acid 500 mg Chewable Tablet PO SCH (09:28)
[2020-12-15] MEDS: Saccharomyces boulardii 250 MG CAP PO SCH (09:28)
[2020-12-15] MEDS: Rifaximin 550 MG TAB PO SCH (09:36)
[2020-12-15 12:08] VITALS: BP 144/75; TEMP 97.9
[2020-12-15] MEDS: Ondansetron PF 4 MG/2 ML Vial IVP PRN (12:31)
[2020-12-15] MEDS ORDERED: levETIRAcetam 500 MG TAB PO SCH (21:00)
== END 2020-12-15 14:45 | DRG 25 ==
LOC: CCU 05:22 → 2SE 12-05 13:25 → PACU-TCU 12-06 17:57 → CCU 12-06 22:38 → 2SE 12-09 12:22 → 3SE 12-14 09:36 → 2SE 12-14 09:41 → 3SE 12-14 11:50
PROVIDERS: ADMIT Surgery; ATTEND Surgery
PROC: 30233K1 Transfusion of Nonautologous Frozen Plasma into Peripheral Vein, Percutaneous Approach (ICD-10-PCS; 2020-12-02)
PROC: 30233N1 Transfusion of Nonautologous Red Blood Cells into Peripheral Vein, Percutaneous Approach (ICD-10-PCS; 2020-12-02)
PROC: 30233R1 Transfusion of Nonautologous Platelets into Peripheral Vein, Percutaneous Approach (ICD-10-PCS; 2020-12-02)
PROC: 30233P1 Transfusion of Nonautologous Frozen Red Cells into Peripheral Vein, Percutaneous Approach (ICD-10-PCS; 2020-12-02)
PROC: 00940ZZ Drainage of Intracranial Subdural Space, Open Approach (ICD-10-PCS; principal; 2020-12-03)
PROC: 00C40ZZ Extirpation of Matter from Intracranial Subdural Space, Open Approach (ICD-10-PCS; 2020-12-06)
PROC: 0W9G3ZZ Drainage of Peritoneal Cavity, Percutaneous Approach (ICD-10-PCS; 2020-12-06)
DX: S06.5X0A Traumatic subdural hemorrhage without loss of consciousness, initial encounter (principal); G93.5 Compression of brain; J96.00 Acute respiratory failure, unspecified whether with hypoxia or hypercapnia; E72.20 Disorder of urea cycle metabolism, unspecified; D61.818 Other pancytopenia; D68.4 Acquired coagulation factor deficiency; D62 Acute posthemorrhagic anemia; G81.91 Hemiplegia, unspecified affecting right dominant side; R64 Cachexia; E87.1 Hypo-osmolality and hyponatremia; Z20.822 Contact with and (suspected) exposure to COVID-19; F10.129 Alcohol abuse with intoxication, unspecified; K70.31 Alcoholic cirrhosis of liver with ascites; E87.6 Hypokalemia; W18.30XA Fall on same level, unspecified, initial encounter; G93.89 Other specified disorders of brain; D69.59 Other secondary thrombocytopenia; I10 Essential (primary) hypertension; K70.40 Alcoholic hepatic failure without coma; E83.51 Hypocalcemia; E83.42 Hypomagnesemia; E87.5 Hyperkalemia; R29.810 Facial weakness; G40.909 Epilepsy, unspecified, not intractable, without status epilepticus; E83.39 Other disorders of phosphorus metabolism; R00.1 Bradycardia, unspecified; Z88.5 Allergy status to narcotic agent; Z59.0 Homelessness; Z68.24 Body mass index [BMI] 24.0-24.9, adult
CPT/HCPCS: 36415; 36416; 36430; 36600; 49083; 70450; 70551; 71045; 74177; 80048; 80053; 80076; 81001; 82040; 82042; 82105; 82140; 82533; 82805; 83605; 83735; 84100; 84146; 84484; 85025; 85060; 85610; 85730; 86850; 86900; 86901; 87070; 87205; 88112; 88305; 89051; 93005; 93010; 93970; 94002; 94003; 95712; 95816; 95819; 95957; C1713; C9113; J0360; J0690; J1100; J1720; J1953; J2001; J2060; J2270; J2405; J2704; J3010; J3411; J3475; J3480; J3490; J7030; J7050; P9016; P9035; P9045; P9047; P9059; Q9967

== ENCOUNTER 2021-06-15 12:36 | Outpatient (CLI) | payer OTHER | END 2021-06-15 12:37 | disposition home or self-care (01) | LOC: BICULT 12:36 | PROVIDERS: ATTEND Physician Assistant Medical | DX: K70.30 Alcoholic cirrhosis of liver without ascites (principal); K72.90 Hepatic failure, unspecified without coma; I85.01 Esophageal varices with bleeding | CPT/HCPCS: 76705 ==

== ENCOUNTER 2022-12-21 13:39 | Day surgery (SDC) | payer OTHER ==
[~2022-12-21 13:39] MED LIST: Acetaminophen 500 MG TAB PO SCH; Ferumoxytol (NON ERSD) 510 MG in Sodium Chloride 0.9% 250 ML 150 ML IVPB SCH
[2022-12-21] MEDS ORDERED: Acetaminophen 500 MG TAB ONE (13:56)
[2022-12-21 14:51] VITALS: BP 117/64; TEMP 98
== END 2022-12-21 15:30 | disposition home or self-care (01) ==
LOC: ONC/OP 13:39
PROVIDERS: ATTEND Student in an Organized Health Care Education/Training Program
DX: E83.10 Disorder of iron metabolism, unspecified (principal); K70.30 Alcoholic cirrhosis of liver without ascites; Z88.5 Allergy status to narcotic agent
CPT/HCPCS: 96365; J7050; Q0138

== ENCOUNTER 2024-01-08 14:43 | Emergency (ER) | payer OTHER ==
[2024-01-08 15:43] LABS: ALT (SGPT) 35 U/L (8-55); AST (SGOT) 56 U/L (5-34); Albumin 3.5 g/dL (3.5-5.0); Alkaline Phosphatase 177 U/L (40-110); Anion Gap 15 mmol/L (10-20); BUN (Urea Nitrogen) 23 mg/dL (9.8-20.1); Calc. Creatinine Clearance 0 mL/min (70-130); Calcium 10.2 mg/dL (7.8-10.44); Carbon Dioxide 21 mmol/L (22-29); Chloride 109 mmol/L (98-107); Estimated GFR 36; Globulin 4.3 g/dL (2.4-3.5); Glucose 90 mg/dL (70-105); Potassium 3.9 mmol/L (3.5-5.1); Protein, Total 7.8 g/dL (6.0-8.3); Sodium 141 mmol/L (136-145)
[2024-01-08 15:48] LABS: Troponin I Less than 0.010 ng/mL (< 0.028)
[2024-01-08 16:12] LABS: #Basophils 0.04 10x3/uL (0.0-0.2); %Basophils 0.9 % (0.0-1.0); %Eosinophils 1.2 % (0.0-10.0); %Lymphocytes 18.4 % (21.0-51.0); %Monocytes 9.3 % (0.0-10.0); Hematocrit 34.5 % (36.0-47.0); Hemoglobin 11.2 g/dL (12.0-16.0); Mean Corpuscular HGB CONC 32.5 g/dL (32.0-36.0); Mean Corpuscular Hemoglobin 26.7 pg (27.0-31.0); Mean Corpuscular Volume 82.3 fL (78.0-98.0); Mean Platelet Volume 10.4 fL (7.4-10.4); Platelet Count 66 10x3/uL (130-400); RBC Distribution Width 13.6 % (11.5-14.5); Red Blood Cell (RBC) Count 4.19 mill/uL (4.20-5.40)
[2024-01-08 16:14] LABS: Platelet Adequacy Comment Significant Decrease; RBC Morphology Within Normal Limits
[2024-01-08 20:11] LABS: Bacteria/HPF None Seen HPF (None Seen); Bilirubin Negative (Negative); Blood, Urine Negative (Negative); CAUTI Indications for Culture Alt mental st,lethar; Clarity Clear (Clear); Glucose, Urine (Dipstick) Normal (Negative); Ketone, Urine Negative (Negative); Leukocyte Negative Leu/uL (Negative); Nitrite Negative (Negative); Protein, Urine (Dipstick) Negative (Neg-Trace); RBC/HPF 0-3 HPF (0-3); Specific Gravity, Urine 1.011 (1.002-1.036); Squamous Epithelial 0-3 HPF (0-3); Urobilinogen Normal mg/dL (Less than 2); WBC/HPF None Seen HPF (0-3)
[2024-01-08 20:24] LABS: Urine Culture Reflex No No
[2024-01-08] MEDS ORDERED: Ibuprofen 800 MG TAB ONE (21:41)
== END 2024-01-08 21:40 | disposition home or self-care (01) ==
LOC: ERS 14:43
DX: K74.60 Unspecified cirrhosis of liver (principal)
CPT/HCPCS: 36415; 70450; 71045; 80053; 80177; 81001; 82140; 83880; 84484; 85025; 93005